=== PATIENT | male | born 1960 | race Hispanic/Latino ===

== ENCOUNTER 2021-01-03 09:40 | Emergency (ER) | payer BC, OTHER ==
[~2021-01-03] VITALS: Ht 167.6 cm; Wt 89.8 kg
[~2021-01-03 09:40] MED LIST: Z.0.PAXIL10 MG PO
[2021-01-03] MEDS ORDERED: TYLENOL # 31 EA PO (10:08)
[2021-01-03] MEDS ORDERED: GUAIFENESIN/DEXTROMETHORPHAN LIQD 5 ML UDC PO PRN (10:15)
== END 2021-01-03 11:19 | disposition home or self-care (01) ==
LOC: ER 10:14
DX: R05 Cough (principal); F41.9 Anxiety disorder, unspecified
CPT/HCPCS: 71045; 93005; 99283